=== PATIENT | male | born 1940 | race Caucasian/White ===

== ENCOUNTER 2017-07-10 20:59 | Inpatient (IN) | payer MEDICARE ==
[~2017-07-10] VITALS: Ht 175.3 cm; Wt 79.4 kg
[2017-07-10] MEDS ORDERED: ONDANSETRON HCL/PF 4 MG/2 ML VIAL ONE ×2 (21:21→21:28)
--- NOTE | 2017-07-10 21:25 | NUR ---
PT BIB RA C/O N/V/D SINCE THIS MORNING AND [place]ILL[place], REPORTS "WEIRD BLOOD SUGAR READINGS". PER EMS, BGL UPON ARRIVAL WAS 15, GIVEN 250 ML OF IV D10. RECHECK UPON ARRIVAL TO ER = 217. DENIES BLOOD IN VOMIT OR STOOL. RESP EVEN UNLABORED. SKIN WARM NONDIAPHORETIC. DENIES ABD PAIN. ABD SOFT NONTENDER. NOTED WITH ST ON MONITOR; MD AWARE. IN ER BED 06 ON MONITOR.
[2017-07-10] MEDS ORDERED: ONDANSETRON HCL/PF 4 MG/2 ML VIAL IVP ONE (21:30)
[2017-07-10] MEDS ORDERED: IV NS 0.9% 1,000 ML BAG IV ONE ×3 (21:30)
[2017-07-10 22:04] LABS: BASOPHILS % (AUTO) 0.2 % (0.0-2.0); EOSINOPHILS # (AUTO) 0.1 /CMM (0.0-0.7); EOSINOPHILS % (AUTO) 0.6 % (0.0-6.0); HEMATOCRIT 44 % (39-51); HEMOGLOBIN 14.6 g/dL (13.5-17.5); LYMPHOCYTES # (AUTO) 0.5 /CMM (0.8-4.8); LYMPHOCYTES % (AUTO) 5.7 % (20.0-44.0); MEAN CORPUSCULAR HEMOGLOBIN 30 PG (26.0-33.0); MEAN CORPUSCULAR HGB CONC 33 g/dl (31.0-36.0); MEAN CORPUSCULAR VOLUME 91 fL (80-96); MONOCYTES # (AUTO) 0.4 /CMM (0.1-1.30); MONOCYTES % (AUTO) 4.4 % (2.0-12.0); NEUTROPHILS # (AUTO) 8.2 /CMM (1.8-8.9); NEUTROPHILS % (AUTO) 89.1 % (43.0-81.0); PLATELET COUNT (AUTO) 157 /CMM (150-450); RDW COEFFICIENT OF VARIATION 14.5 (11.5-15.0); RED BLOOD CELL COUNT(AUTO) 4.83 MIL/uL (4.5-6.0); WHITE BLOOD COUNT (AUTO) 9.2 K/uL (4.3-11.0)
[2017-07-10 22:16] LABS: CALCIUM, SERUM 9.4 mg/dL (8.5-10.1); CARBON DIOXIDE 23 mmol/L (21-32); CHLORIDE 108 mmol/L (98-107); CREATININE 1.7 mg/dL (0.6-1.3); GLUCOSE 238 mg/dL (74-106); POTASSIUM 4.6 mmol/L (3.5-5.1); SODIUM SERUM 142 mmol/L (136-145); UREA NITROGEN, BLOOD 44 mg/dL (7-18)
[2017-07-10 22:20] LABS: INR 1.1 (0.87-1.13); PROTHROMBIN TIME 11.4 SECS (9.5-12.7)
[2017-07-10 22:22] LABS: ALANINE AMINOTRANSFERASE 44 U/L (12-78); ALBUMIN 3.9 g/dL (3.4-5.0); ALKALINE PHOSPHATASE 27 U/L (46-116); ASPARTATE AMINOTRANSFERASE 21 U/L (15-37); BILIRUBIN,DIRECT 0.2 mg/dL (0.0-0.2); BILIRUBIN,TOTAL 0.9 mg/dL (0.2-1.0); LIPASE 588 U/L (73-393); TOTAL PROTEIN, SERUM 6.8 g/dL (6.4-8.2)
[2017-07-10 22:24] LABS: TROPONIN I < 0.017 ng/mL (0.00-0.056)
--- NOTE | 2017-07-10 23:07 | NUR ---
RESTING QUIETLY, NAD NOTED. REMAINS IN ST. ALL NEEDS ATTENDED TO. 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
[2017-07-10] MEDS ORDERED: ATOR10TA PO (23:22)
[2017-07-10] MEDS ORDERED: BACL10TA PO (23:22)
[2017-07-10] MEDS ORDERED: OMEP20TA20 PO (23:22)
[2017-07-10] MEDS ORDERED: ALBU8.5H2 INH (23:22)
[2017-07-10] MEDS ORDERED: MONT10TA22 PO (23:22)
[2017-07-10] MEDS ORDERED: ZOLP10TA6 PO (23:22)
[2017-07-10] MEDS ORDERED: FERR-58 PO (23:22)
[2017-07-10] MEDS ORDERED: LOSA50TA21 PO (23:22)
[2017-07-10] MEDS ORDERED: TAMS-12 PO (23:22)
[2017-07-10] MEDS ORDERED: BUDE10.2 INH (23:22)
[2017-07-10] MEDS ORDERED: METF10002 PO (23:22)
[2017-07-10] MEDS ORDERED: ASPI81TA2 PO (23:22)
[2017-07-10] MEDS ORDERED: GLIP5TAB13 PO (23:22)
[2017-07-10] MEDS ORDERED: FENO145T PO (23:22)
[2017-07-10] MEDS ORDERED: IV NS 0.9% 1,000 ML IV PRN (23:42)
[2017-07-11] VITALS: BP 113/68
[2017-07-11] MEDS ORDERED: MAG HYDROX/AL HYDROX/SIMETH 30 ML UDC PO PRN
[2017-07-11] MEDS ORDERED: HYDROCODONE/APAP 5/325MG 1 EACH TABLET PO PRN
[2017-07-11] MEDS ORDERED: ONDANSETRON HCL/PF 4 MG/2 ML VIAL IVP PRN
[2017-07-11] MEDS ORDERED: MAGNESIUM HYDROXIDE 30 ML UDC PO PRN
[2017-07-11] MEDS ORDERED: ACETAMINOPHEN 325 MG TABLET PO PRN
[2017-07-11] MEDS ORDERED: Z GUARD REMEDY 2 OZ OINT TP PRN
--- NOTE | 2017-07-11 | NUR ---
PT TRANSPORTED TO [facility] IN STABLE CONDITION VIA ACLS PROTOCOL
--- NOTE | 2017-07-11 00:07 | NUR ---
TELE/RN NOTES RECEIVED PT. FROM ER VIA IVONE. PT. IS AWAKE, ALERT AND ORIENTED X3. BREATHING EVEN AND UNLABORED ON ROOM AIR. NO SOB, RESPIRATORY DISTRESS OR COMPLAINTS OF PAIN NOTED AT THIS TIME. NO COMPLAINTS OF N/V AT THIS TIME. ORIENTED PT. TO ROOM. PLACED EXTERNAL ROLL WRAPPER ON PT. CURRENT RHYTHM = SINUS TACHYCARDIA HR 110. PT. WITH RIGHT AC 18 GAUGE IV SALINE LOCK PRESENT, PATENT AND INTACT. PT. FAMILY MEMBERS PRESENT AT BEDSIDE. BED LOCKED AND IN LOWEST POSITION, SIDE RAILS UP X2, CALL LIGHT WITHIN REACH, WILL CONTINUE TO MONITOR.
[2017-07-11] MEDS ORDERED: IV NS 0.9% 1,000 ML IV PRN (00:48)
[2017-07-11] MEDS ORDERED: PANTOPRAZOLE 40 MG VIAL ONE (01:02)
--- NOTE | 2017-07-11 01:10 | NUR ---
TELE/RN NOTES NOTIFIED PACK TRAIN DRIVER BALL PT. MOST RECENT LACTIC ACID IS ELEVATED AT 2.5 PREVIOUS LACTIC ACID 2.1 PER PACK TRAIN DRIVER BALL NEW ORDERS: LACTIC ACID TO BE DRAWN WHEN IV BOLUS COMPLETE. PT. TO HAVE STAT CT ABDOMEN AND PELVIS. WILL CARRY OUT ORDERS. WILL CONTINUE TO MONITOR.
--- NOTE | 2017-07-11 01:20 | NUR ---
TELE/RN NOTES PT. LEFT THE FLOOR VIA WHEELCHAIR ACCOMPANIED BY RADIOLOGIST FOR CT ABDOMEN AND PELVIS WITHOUT CONTRAST.
[2017-07-11] MEDS ORDERED: LEVOFLOXACIN 500 MG /D5W 100ML 500 MG in PREMIX 1 EA IV SCH (01:30)
--- NOTE | 2017-07-11 01:32 | NUR ---
TELE/RN NOTES PT. ARRIVED BACK ON THE FLOOR FROM CT ABDOMEN AND PELVIS WITHOUT CONTRAST. PT. TOLERATED PROCEDURE WELL. PT. IS LYING IN BED NO COMPLAINTS OF SOB, RESPIRATORY DISTRESS, NO N/V. PT. APPEARS COMFORTABLE AT THIS TIME. WILL CONTINUE TO MONITOR.
[2017-07-11] MEDS ORDERED: LEVOFLOXACIN 500 MG /D5W 100ML 100 ML IV ONE (01:42)
[2017-07-11] MEDS ORDERED: METRONIDAZOLE 500MG/ NS 100ML 100 ML IV ONE (01:42)
[2017-07-11] MEDS: METRONIDAZOLE 500MG/ NS 100ML 500 MG in PREMIX 1 EA IV SCH ×3 (01:48→17:21)
[2017-07-11 02:12] LABS: APPEARANCE,URINE CLEAR (CLEAR); BILIRUBIN,URINE NEGATIVE (NEGATIVE); BLOOD, URINE NEGATIVE Ery/uL (NEGATIVE); COLOR,URINE YELLOW (YELLOW); KETONES,URINE NEGATIVE (NEGATIVE); LEUKOCYTE ESTERASE ,URINE NEGATIVE (NEGATIVE); NITRITE, URINE NEGATIVE (NEGATIVE); PROTEIN,URINE NEGATIVE (NEGATIVE); UGLUCOSE 1+ mg/dL (NEGATIVE); UROBILINOGEN,URINE 0.2 EU/dL (0.2)
[2017-07-11 02:15] LABS: BACTERIA,URINE None seen /HPF (None Seen); RBC,URINE NONE SEEN /HPF (0-2); SQUAMOUS EPITHELIAL CELL,UR Rare /HPF (None Seen); WBC,URINE 0-2 /HPF (0-3)
[2017-07-11 05:02] VITALS: BP 105/64
--- NOTE | 2017-07-11 05:45 | NUR ---
TELE/RN NOTES CLARIFIED WITH PAMELA BALL PT. ORDERS FOR ACCUCHECK. PER PAMELA BALL NEW ORDER: ACCUCHECKS ACHS NO INSULIN COVERAGE AT THIS TIME. WILL CARRY OUT ORDER. WILL CONTINUE TO MONITOR.
--- NOTE | 2017-07-11 06:29 | NUR ---
TELE/RN NOTES PT. IS LYING IN BED RESTING. BREATHING EVEN AND UNLABORED ON ROOM AIR. NO N/V, SOB, RESPIRATORY DISTRESS OR COMPLAINTS OF PAIN NOTED AT THIS TIME. PT. WITH EXTERNAL ORAL SURGERY ASSISTANT ON PT. CURRENT RHYTHM = SINUS RHYTHM HR 88. PT. WITH RIGHT AC 18 GAUGE PERIPHERAL IV PRESENT, PATENT AND INTACT ADMINISTERING TO PT. NS @ 125 ML/HR. ALL PT. NEEDS MET. BED LOCKED AND IN LOWEST POSITION, SIDE RAILS UP X2, CALL LIGHT WITHIN REACH, WILL ENDORSE TO DAYSHIFT NURSE FOR CONTINUITY OF CARE.
[2017-07-11 06:46] LABS: EOSINOPHILS # (AUTO) 0.1 /CMM (0.0-0.7); EOSINOPHILS % (AUTO) 1.8 % (0.0-6.0); HEMATOCRIT 33 % (39-51); HEMOGLOBIN 11.4 g/dL (13.5-17.5); LYMPHOCYTES # (AUTO) 0.4 /CMM (0.8-4.8); LYMPHOCYTES % (AUTO) 7.6 % (20.0-44.0); MEAN CORPUSCULAR HEMOGLOBIN 31 PG (26.0-33.0); MEAN CORPUSCULAR HGB CONC 34 g/dl (31.0-36.0); MEAN CORPUSCULAR VOLUME 90 fL (80-96); MONOCYTES # (AUTO) 0.5 /CMM (0.1-1.30); MONOCYTES % (AUTO) 9.5 % (2.0-12.0); NEUTROPHILS # (AUTO) 4.4 /CMM (1.8-8.9); NEUTROPHILS % (AUTO) 81.1 % (43.0-81.0); PLATELET COUNT (AUTO) 114 /CMM (150-450); RDW COEFFICIENT OF VARIATION 14.3 (11.5-15.0); WHITE BLOOD COUNT (AUTO) 5.4 K/uL (4.3-11.0)
[2017-07-11 07:09] VITALS: BP 112/76
[2017-07-11 07:10] LABS: CHOLESTEROL 73 mg/dL (<200); HDL CHOLESTEROL 34 mg/dL (40-60); LDL 32 mg/dL (0-99); THYROID STIMULATING HORMONE 0.682 uIU/mL (0.358-3.74); TRIGLYCERIDES 54 mg/dL (30-150)
[2017-07-11 07:11] LABS: CARBON DIOXIDE 23 mmol/L (21-32); CHLORIDE 113 mmol/L (98-107); CREATININE 1.5 mg/dL (0.6-1.3); GLUCOSE 141 mg/dL (74-106); MAGNESIUM 1.3 mg/dL (1.8-2.4); PHOSPHORUS 2.9 mg/dL (2.5-4.9); POTASSIUM 5.2 mmol/L (3.5-5.1); SODIUM SERUM 144 mmol/L (136-145); UREA NITROGEN, BLOOD 38 mg/dL (7-18)
[2017-07-11] MEDS ORDERED: BLOOD SUGAR DIAGNOSTIC 1 EACH STRIP IN SCH (07:30)
--- NOTE | 2017-07-11 07:30 | NUR ---
PT RECEIVED RESTING COMFORTABLY IN BED. NO S/S OR C/O PAIN OR DISTRESS NOTED. SIDE RAILS UP X2, CALL LIGHT LEFT WITHIN REACH. WILL CONTINUE PLAN OF CARE.
[2017-07-11 08:00] VITALS: BP 111/72
[2017-07-11] MEDS ORDERED: glipiZIDE 5 MG TABLET PO SCH (09:00)
[2017-07-11] MEDS ORDERED: ASPIRIN 81 MG TAB.CHEW PO SCH (09:00)
[2017-07-11] MEDS ORDERED: BACLOFEN (10 MG) 10 MG TABLET PO SCH ×2 (09:00→22:00)
[2017-07-11] MEDS ORDERED: DEXTROSE 50%-WATER 50 ML DISP.SYRIN IV PRN (09:30)
[2017-07-11] MEDS ORDERED: MECLIZINE HCL 12.5 MG TABLET PO PRN (09:30)
[2017-07-11] MEDS ORDERED: Magnesium 1GM/D5W 100ML PREMIX 100 ML IV SCH (09:30)
[2017-07-11] MEDS: MONTELUKAST SODIUM (10MG) 10 MG TABLET PO SCH (09:44)
[2017-07-11] MEDS: SLOW FE 1 TAB PO SCH (09:44)
[2017-07-11] MEDS: FENOFIBRATE NANOCRYS (145 MG) 145 MG TABLET PO SCH (09:44)
[2017-07-11] MEDS: TAMSULOSIN 0.4 MG CAP.SR.24H PO SCH (09:45)
[2017-07-11] MEDS ORDERED: SODIUM POLYSTYRENE SULFONATE 15 G/60 ML BOTTLE PO ONE (10:00)
[2017-07-11] MEDS: PANTOPRAZOLE 40 MG VIAL IV SCH ×2 (12:01→21:25)
[2017-07-11] MEDS: BLOOD SUGAR DIAGNOSTIC 1 EACH STRIP IN SCH ×3 (12:01→21:29)
[2017-07-11] MEDS: Budesonide/Formoterol Fumarate (Symbicort 160-4.5 Mcg In INH SCH ×2 (12:42→17:20)
[2017-07-11] MEDS ORDERED: ALBUTEROL FS 2.5 MG/3 ML VIAL.NEB NEB PRN (13:30)
[2017-07-11 16:00] VITALS: BP 118/70
[2017-07-11] MEDS ORDERED: PANTOPRAZOLE 40 MG VIAL IV SCH ×2 (17:00)
[2017-07-11] MEDS ORDERED: ATORVASTATIN 10 MG TABLET PO SCH (18:00)
--- NOTE | 2017-07-11 18:58 | NUR ---
CHANGE OF SHIFT REPORT PT RESTING COMFORTABLY IN BED. NO S/S OR C/O PAIN OR DISTRESS NOTED. SIDE RAILS UP X2, CALL LIGHT LEFT WITHIN REACH. PT KEPT CLEAN, DRY, AND COMFORTABLE. NO SIGNIFICANT CHANGES SINCE PREVIOUS SHIFT. WILL GIVE REPORT TO MARCO ROY.
[2017-07-11] MEDS: INSULIN REGULAR, HUMAN 100 UNIT/ML 3 ML VIAL SQ PRN ×2 (19:06→21:28)
--- NOTE | 2017-07-11 19:30 | NUR ---
DIRECTOR HEALTH NOTE RECEIVED PATIENT FROM DAY SHIFT, PATIENT IS ALERT AND ORIENTEDX3, DENIES RESPIRATORY DISTRESS OR PAIN AT THIS TIME. IV ON RIGHT FA IS PATENT AND INTACT, FLUID IS RUNNING. TELE MONITOR ST 102. SRX2, BED IN LOW POSITION, CALL LIGHT WITHIN REACH, WILL CONTINUE TO MONITOR PATIENT.
[2017-07-11 20:00] VITALS: BP 126/73
--- NOTE | 2017-07-11 21:40 | NUR ---
WEATHERIZATION AND HOUSING INSPECTOR NOTE PATIENT REQUESTED TO TAKE AMBIEN TONIGHT, HAS HOME MED AMBIEN 10MG, BUT NO ORDER IN [facility]. CALLED ONCALL DEVELOPMENTAL BEHAVIORAL PHYSICIAN LIANA, GOT ONE TIME ORDER OF AMBIEN 10MG PO TONIGHT. ORDERS PLACED AND WILL CARRY OUT.
[2017-07-11] MEDS ORDERED: ZOLPIDEM TARTRATE 10 MG TABLET PO ONE (22:00)
[2017-07-11] MEDS ORDERED: ZOLPIDEM TARTRATE 10 MG TABLET ONE (22:07)
[2017-07-12] VITALS: BP 118/76
[2017-07-12] MEDS: METRONIDAZOLE 500MG/ NS 100ML 500 MG in PREMIX 1 EA IV SCH ×2 (01:09→10:30)
[2017-07-12 04:00] VITALS: BP 154/97
[2017-07-12] MEDS ORDERED: LEVOFLOXACIN 250 MG /D5W 50 ML 250 MG in PREMIX 1 EA IV SCH (04:00)
[2017-07-12] MEDS: BLOOD SUGAR DIAGNOSTIC 1 EACH STRIP IN SCH ×2 (05:57→11:23)
--- NOTE | 2017-07-12 06:55 | NUR ---
DRAPERY INSPECTOR NOTE PATIENT IS RESTING IN BED COMFORTABLY, NO ACUTE EVENT NOTED THROUGHOUT THE SHIFT. IV ON RIGHT FA IS PATENT AND INTACT, FLUID IS RUNNING. TELE MONITOR SR 84 WITH PVCS. WILL ENDORSE TO DAY SHIFT NURSE FOR EDMUND.
[2017-07-12 07:09] LABS: BASOPHILS % (AUTO) 0.1 % (0.0-2.0); EOSINOPHILS # (AUTO) 0.1 /CMM (0.0-0.7); EOSINOPHILS % (AUTO) 1.5 % (0.0-6.0); HEMATOCRIT 33 % (39-51); HEMOGLOBIN 11.1 g/dL (13.5-17.5); LYMPHOCYTES # (AUTO) 0.7 /CMM (0.8-4.8); MEAN CORPUSCULAR HEMOGLOBIN 31 PG (26.0-33.0); MEAN CORPUSCULAR HGB CONC 34 g/dl (31.0-36.0); MEAN CORPUSCULAR VOLUME 90 fL (80-96); MONOCYTES # (AUTO) 0.3 /CMM (0.1-1.30); MONOCYTES % (AUTO) 8.1 % (2.0-12.0); NEUTROPHILS # (AUTO) 3.2 /CMM (1.8-8.9); NEUTROPHILS % (AUTO) 74.3 % (43.0-81.0); PLATELET COUNT (AUTO) 103 /CMM (150-450); RDW COEFFICIENT OF VARIATION 14.1 (11.5-15.0); RED BLOOD CELL COUNT(AUTO) 3.63 MIL/uL (4.5-6.0); WHITE BLOOD COUNT (AUTO) 4.3 K/uL (4.3-11.0)
[2017-07-12 07:25] LABS: CALCIUM, SERUM 7.9 mg/dL (8.5-10.1); CARBON DIOXIDE 25 mmol/L (21-32); CHLORIDE 111 mmol/L (98-107); CREATININE 1.4 mg/dL (0.6-1.3); GLUCOSE 117 mg/dL (74-106); POTASSIUM 4.8 mmol/L (3.5-5.1); SODIUM SERUM 143 mmol/L (136-145); UREA NITROGEN, BLOOD 27 mg/dL (7-18)
[2017-07-12] MEDS ORDERED: PANTOPRAZOLE 40 MG TABLET.DR PO SCH (07:30)
--- NOTE | 2017-07-12 07:50 | NUR ---
SEAL SKINNER OPENING NOTE PATIENT IS ALERT AND ORIENTED x4. NO PAIN AT THIS TIME. NO SOB OR DISTRESS NOTED. CALL LIGHT WITHIN REACH. SAFETY MEASURES IMPLEMENTED. ABLE TO COMMUNICATE NEEDS. TELE MONITOR IN PLACE, SR WITH PVCS AT 82. IV ON RIGHT FOREARM INTACT AND PATENT, IV FLUIDS RUNNING AT THIS TIME. NPO EXCEPT DUE TO EGD TODAY 07/12/17. CONSENTS OBTAINED. WILL CONTINUE TO MONITOR
--- NOTE | 2017-07-12 08:30 | NUR ---
RN NOTE PATIENT REFUSED TO CONTINUE TO HAVE TELE MONITOR ON. EXPLAINED RISKS AND BENEFITS. PATIENT STILL INSISTED ON NOT HAVING IT ON. CHARGE NURSE AND MD AWARE.
[2017-07-12 08:50] VITALS: BP 146/91
[2017-07-12] MEDS: SLOW FE 1 TAB PO SCH (08:55)
[2017-07-12] MEDS: Budesonide/Formoterol Fumarate (Symbicort 160-4.5 Mcg In INH SCH (08:55)
[2017-07-12] MEDS: MONTELUKAST SODIUM (10MG) 10 MG TABLET PO SCH (08:55)
[2017-07-12] MEDS: TAMSULOSIN 0.4 MG CAP.SR.24H PO SCH (08:55)
[2017-07-12] MEDS: PANTOPRAZOLE 40 MG VIAL IV SCH (08:55)
[2017-07-12] MEDS: FENOFIBRATE NANOCRYS (145 MG) 145 MG TABLET PO SCH (09:00)
[2017-07-12] MEDS ORDERED: PANTOPRAZOLE 40 MG VIAL IV SCH (09:00)
--- NOTE | 2017-07-12 16:07 | NUR ---
MS CONFIGURATION MANAGEMENT ADVISOR NOTE PATIENT IS ALERT AND ORIENTED x4. NO PAIN AT THIS TIME. NO SOB OR DISTRESS NOTED. CALL LIGHT WITHIN REACH AT ALL TIMES. SAFETY MEASURES IMPLEMENTED. S/P EGD DONE TODAY THIS MORNING. ALL DUE MEDICATIONS GIVEN ORDERED. ALL DISCHARGE INSTRUCTIONS GIVEN TO PATIENT, ABLE TO TEACH BACK INSTRUCTIONS. PRESCRIPTION GIVEN TO PATIENT, EXPLAINED RISKS AND BENEFITS OF MEDICATIONS, PATIENT VERBALIZED UNDERSTANDING FOR MEDICATIONS. ALL BELONGINGS WITH PATIENT. LEFT VIA PRIVATE CAR WITH SON. IV REMOVED, SKIN INTACT.
== END 2017-07-12 16:00 | disposition home or self-care (01) | DRG 377 ==
LOC: ER 21:03 → TELE 22:59 → MED 07-12 10:45
PROVIDERS: ADMIT Nurse Practitioner Acute Care; ATTEND Nurse Practitioner Acute Care
PROC: 0DB68ZX Excision of Stomach, Via Natural or Artificial Opening Endoscopic, Diagnostic (ICD-10-PCS; principal; 2017-07-12 09:40)
DX: K29.71 Gastritis, unspecified, with bleeding (principal); N17.0 Acute kidney failure with tubular necrosis; E87.2 Acidosis; A09 Infectious gastroenteritis and colitis, unspecified; K57.92 Diverticulitis of intestine, part unspecified, without perforation or abscess without bleeding; E11.22 Type 2 diabetes mellitus with diabetic chronic kidney disease; J44.9 Chronic obstructive pulmonary disease, unspecified; E86.0 Dehydration; I12.9 Hypertensive chronic kidney disease with stage 1 through stage 4 chronic kidney disease, or unspecified chronic kidney disease; N18.9 Chronic kidney disease, unspecified; K21.9 Gastro-esophageal reflux disease without esophagitis; E78.5 Hyperlipidemia, unspecified; D64.9 Anemia, unspecified; E83.42 Hypomagnesemia; E87.5 Hyperkalemia; G47.00 Insomnia, unspecified; N40.0 Benign prostatic hyperplasia without lower urinary tract symptoms; J45.909 Unspecified asthma, uncomplicated; K27.9 Peptic ulcer, site unspecified, unspecified as acute or chronic, without hemorrhage or perforation
CPT/HCPCS: 36415; 76770-TC; 80048-TC; 80061-TC; 80076-TC; 81000-TC; 82272-TC; 82962-TC; 83605-TC; 83690-TC; 83735-TC; 84100-TC; 84443-TC; 84484-TC; 85025-TC; 85730-TC; 87040-TC; 87081-TC; 87086-TC; 88305-TC; A4216; A4606; C9113; J1815; J1956; J2405; J2704; J3475; J3490; J7030; Z7610

== ENCOUNTER 2018-07-21 20:54 | Emergency (ER) | payer MEDICARE, OTHER ==
[~2018-07-21] VITALS: Ht 175.3 cm; Wt 79.4 kg
[~2018-07-21 20:54] MED LIST: ALBU8.5H8 INH; ASPI-1169 PO; ATOR10TA PO; BACL10TA PO; BUDE10.2 INH; FENO145T PO; FERR325T23 PO; GLIP5TAB13 PO; LOSA50TA21 PO; METF-442 PO; MONT10TA22 PO; OMEP20TA20 PO; TAMS-12 PO; ZOLP10TA6 PO
[2018-07-21 21:15] VITALS: BP 157/94
--- NOTE | 2018-07-21 22:34 | NUR ---
PT LEFT WITHOUT BEING SEEN BY MD, RISK AND BENEFITS EXPLAINED X3. PT STRONGLY REFSUED AT THIS TIME. PT STATES " I CALLED MY PCP, HE WILL PRESCRIBED ME THE RIGHT MEDICATION" DR. DUNN MADE AWARE
== END 2018-07-21 22:38 | disposition left against medical advice (07) ==
LOC: ER 20:56
DX: Z53.21 Procedure and treatment not carried out due to patient leaving prior to being seen by health care provider (principal); H57.9 Unspecified disorder of eye and adnexa
CPT/HCPCS: A4606; Z7610

== ENCOUNTER 2018-11-02 07:01 | Inpatient (IN) | payer MEDICARE, OTHER ==
[~2018-11-02] VITALS: Ht 175.3 cm; Wt 79.4 kg
[~2018-11-02 07:01] MED LIST changes: -LOSA50TA21 PO; +LOSA50TA39 PO
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
--- NOTE | 2018-11-02 07:09 | NUR ---
TECH AT BEDSIDE FOR EKG
--- NOTE | 2018-11-02 07:29 | NUR ---
PHLEB AT BEDSIDE FOR LABS
--- NOTE | 2018-11-02 07:31 | NUR ---
REPORT GIVEN TO MANUELA ZAMARRIPA FOR EDMUND
[2018-11-02 07:38] LABS: BASOPHILS % (AUTO) 0.4 % (0.0-2.0); EOSINOPHILS % (AUTO) 1.7 % (0.0-6.0); HEMATOCRIT 34 % (39-51); HEMOGLOBIN 11.8 g/dL (13.5-17.5); LYMPHOCYTES # (AUTO) 0.8 /CMM (0.8-4.8); LYMPHOCYTES % (AUTO) 14.5 % (20.0-44.0); MEAN CORPUSCULAR HGB CONC 35 g/dl (31.0-36.0); MEAN CORPUSCULAR VOLUME 91 fL (80-96); MONOCYTES # (AUTO) 0.3 /CMM (0.1-1.30); MONOCYTES % (AUTO) 5.5 % (2.0-12.0); NEUTROPHILS # (AUTO) 4.2 /CMM (1.8-8.9); NEUTROPHILS % (AUTO) 77.9 % (43.0-81.0); PLATELET COUNT (AUTO) 146 /CMM (150-450); RED BLOOD CELL COUNT(AUTO) 3.74 MIL/uL (4.5-6.0); WHITE BLOOD COUNT (AUTO) 5.3 K/uL (4.3-11.0)
[2018-11-02 07:47] LABS: CALCIUM, SERUM 9.1 mg/dL (8.5-10.1); CARBON DIOXIDE 21 mmol/L (21-32); CHLORIDE 105 mmol/L (98-107); CREATININE 1.5 mg/dL (0.6-1.3); GLUCOSE 148 mg/dL (74-106); POTASSIUM 4.1 mmol/L (3.5-5.1); SODIUM SERUM 138 mmol/L (136-145); UREA NITROGEN, BLOOD 35 mg/dL (7-18)
--- NOTE | 2018-11-02 07:55 | NUR ---
patient transported for CT via gurney, patient remains in stable condition at this time.
--- NOTE | 2018-11-02 08:07 | NUR ---
Patient is back from CT.
[2018-11-02] MEDS ORDERED: ACETAMINOPHEN ES 500 MG TABLET ONE (08:11)
[2018-11-02] MEDS ORDERED: ACETAMINOPHEN ES 500 MG TABLET PO ONE (08:30)
[2018-11-02] MEDS ORDERED: ACETAMINOPHEN SUSP 80 MG/0.8 ML BOTTLE PO ONE (08:30)
[2018-11-02] MEDS ORDERED: ONDANSETRON HCL/PF 4 MG/2 ML VIAL IVP ONE (09:00)
[2018-11-02] MEDS ORDERED: MORPHINE SULFATE INJ 2 MG/ML DISP.SYRIN IV ONE (09:00)
[2018-11-02] MEDS ORDERED: EXEN2PEN SQ (09:09)
[2018-11-02] MEDS ORDERED: ONDANSETRON HCL/PF 4 MG/2 ML VIAL ONE (09:13)
[2018-11-02] MEDS ORDERED: MORPHINE SULFATE INJ 4 MG/ML DISP.SYRIN ONE (09:13)
--- NOTE | 2018-11-02 10:11 | NUR ---
REPORT GIVEN TO MANUELA GUZMAN FOR [facility] TELE [phone].
[2018-11-02 10:45] VITALS: BP 188/114
[2018-11-02] MEDS ORDERED: ZOLPIDEM TARTRATE 5 MG TABLET PO PRN (11:30)
[2018-11-02] MEDS ORDERED: MAG HYDROX/AL HYDROX/SIMETH 30 ML UDC PO PRN (11:30)
[2018-11-02] MEDS ORDERED: Z GUARD REMEDY 2 OZ OINT TP PRN (11:30)
[2018-11-02] MEDS ORDERED: ONDANSETRON HCL/PF 4 MG/2 ML VIAL IVP PRN (11:30)
[2018-11-02] MEDS ORDERED: MAGNESIUM HYDROXIDE 30 ML UDC PO PRN (11:30)
[2018-11-02] MEDS ORDERED: HYDROCODONE/APAP 5/325MG 1 EACH TABLET PO PRN (11:30)
[2018-11-02] MEDS ORDERED: ACETAMINOPHEN 325 MG TABLET PO PRN (11:30)
--- NOTE | 2018-11-02 11:41 | NUR ---
SIGNAL INSPECTOR ADMITTING NOTES PATIENT ADMITTED TO UNIT VIA GURNEY ACCOMPANIED BY Merle NURSE. PT ABLE TO AMBULATE FROM GURNEY TO BED. PT IS A/O X4. ABLE TO MAKE NEEDS AND CONCERNS KNOWN WITH COMPLAINED OF MILD PAIN ON CHEST BUT TOLERABLE. ORIENTED TO ROOM AND UNIT. PT INITIALLY PLACED ON TELEMONITORING WITH SR WITH OCCASIONAL PVC'S AND HR ON THE 90'S, NO C/O CARDIAC DISCOMFORTS. DR DHALIWAL ON UNIT, WENT TO ASSESS AND EVALUATE PT AND ORDER TO PUT PT ON MED-SURG. V/S TAKEN AND RECORDED. HEAD TO TOE ASSESSMENT DONE, PT WITH SMALL BUMP ON HIS LEFT BACK OF HIS HEAD AND REDNESS ON HIS LEFT EYE, DR DHALIWAL AWARE. MULTIPLE BRUISES AND SKIN TEARS NOTED, PHOTOS TAKEN AND FILED ON CHART. NOTED WITH IV ACCESS ON LAC G#20 INTACT AND PATENT. PT WITH CLEAR LUNG SOUNDS BILATERALLY ON AUSCULTATION. ABDOMEN SOFT, NON-TENDER, NON-DISTENDED WITH POSITIVE BOWEL SOUNDS ON FOUR QUADRANTS. SAFETY MEASURES INITIATED, BED PLACED ON LOWEST LOCKED POSITION WITH SR UP X2. CALL LIGHT IN REACH. WILL CONTINUE TO MONITOR AND ASSESS PT.
[2018-11-02] MEDS ORDERED: DEXTROSE 50%-WATER 50 ML DISP.SYRIN IV PRN (12:30)
[2018-11-02] MEDS: HYDROMORPHONE INJ 0.5 MG/0.5 ML SYRINGE IV PRN ×3 (13:03→22:17)
--- NOTE | 2018-11-02 13:06 | NUR ---
RN NOTES/ PAIN MANAGEMENT PATIENT COMPLAINED OF ACHING AND SHARP PAIN ON HIS MID CHEST AREA WITH SCALE OF 10/10, PRN DILAUDID 0.25MG IVP ADMINISTERED AT 1302. WILL CONTINUE TO MONITOR AND ASSESS PT.
[2018-11-02 16:00] VITALS: BP 151/97
[2018-11-02] MEDS ORDERED: Medication Not On Formulary EA (Exenatide Microspheres (Bydureon Pen) 2 MG) SQ SCH (17:30)
[2018-11-02] MEDS: BLOOD SUGAR DIAGNOSTIC 1 EACH STRIP IN SCH ×2 (17:31→21:04)
[2018-11-02] MEDS: INSULIN REGULAR, HUMAN 100 UNIT/ML 3 ML VIAL SQ PRN ×2 (17:32→21:10)
[2018-11-02] MEDS ORDERED: BACLOFEN (10 MG) 10 MG TABLET PO SCH (18:00)
--- NOTE | 2018-11-02 18:16 | NUR ---
RN NOTES/ PAIN MANAGEMENT PATIENT COMPLAINED OF GENERALIZED PAIN WITH SCALE OF 10/10, PRN DILAUDID 0.25MG IVP ADMINISTERED AT 1806. WILL CONTINUE TO MONITOR AND ASSESS PT
--- NOTE | 2018-11-02 19:00 | NUR ---
RN NOTES RECEIVE PT IN BED A/O X 4, IN STABLE CONDITION, NOT IN DISTRESS, SAFETY MEASURES IN PLACE. WILL CONTINUE TO MONITOR.
[2018-11-02] MEDS ORDERED: ALBUTEROL FS 2.5 MG/3 ML VIAL.NEB NEB PRN (19:30)
--- NOTE | 2018-11-02 19:39 | NUR ---
MS RN CLOSING NOTES PT RESTING IN BED AND WATCHING TV. A/O X4, SAME ABLE TO VERBALIZED NEEDS. ON ROOM AIR, BREATHING EVEN WITH NO SOB NOTED. SALINE LOCK ON LEFT AC INTACT AND PATENT. ALL NEEDS AND CARE ATTENDED WELL. BED IN LOWEST LOCKED POSITION WITH SR UP X2. CALL LIGHT IN REACH. ENDORSED TO MAINTENANCE APPRENTICE NURSE FOR EDMUND.
[2018-11-02 20:00] VITALS: BP 168/90
--- NOTE | 2018-11-02 20:18 | NUR ---
[place] HOSPITALIST SPOKE TO DR. HUERTA AND RELAYED BLOOD PRESSURE OF THE PT 168/90 PER DEANNA ORDERED HYDRALAZINE 25 MG PO Q4 PRN SBP>160 READ BACK AND VERIFIED ORDERS NOTED AND CARRIED OUT
[2018-11-02] MEDS: hydrALAZINE HCL 25 MG TABLET PO PRN (20:24)
[2018-11-02 20:30] VITALS: BP 133/82
[2018-11-02 20:32] VITALS: BP 170/98
[2018-11-02] MEDS ORDERED: ZOLPIDEM TARTRATE 10 MG TABLET PO SCH (22:00)
[2018-11-03] MEDS: HYDROMORPHONE INJ 0.5 MG/0.5 ML SYRINGE IV PRN ×2 (05:49→12:17)
[2018-11-03] MEDS: BLOOD SUGAR DIAGNOSTIC 1 EACH STRIP IN SCH ×2 (05:58→12:19)
[2018-11-03] MEDS: INSULIN REGULAR, HUMAN 100 UNIT/ML 3 ML VIAL SQ PRN ×2 (05:59→12:20)
--- NOTE | 2018-11-03 06:22 | NUR ---
RN CLOSING NOTE AWAKE WATCHING TV. RESPIRATIONS EVEN AND UNLABORED. AM CARE RENDERED. NO COMPLAIN OF PAIN IN STABLE CONDITION, NOT IN DISTRESS. NURSING CARE RENDERED, KEPT CLEAN AND DRY AND COMFORT, NEEDS ATTENDED AND ANCTIPATED. GOOD SKIN CARE. SAFETY MEASURES IN PLACE, CALL LIGHT WITHIN REACH. WILL ENDORSE TO ELEVATOR OPERATOR FOR EDMUND.
[2018-11-03 06:34] LABS: BASOPHILS % (AUTO) 0.3 % (0.0-2.0); EOSINOPHILS % (AUTO) 1.6 % (0.0-6.0); HEMATOCRIT 37 % (39-51); HEMOGLOBIN 12.7 g/dL (13.5-17.5); LYMPHOCYTES # (AUTO) 0.9 /CMM (0.8-4.8); LYMPHOCYTES % (AUTO) 11.2 % (20.0-44.0); MEAN CORPUSCULAR HGB CONC 35 g/dl (31.0-36.0); MEAN CORPUSCULAR VOLUME 91 fL (80-96); MONOCYTES # (AUTO) 0.5 /CMM (0.1-1.30); MONOCYTES % (AUTO) 6.4 % (2.0-12.0); NEUTROPHILS # (AUTO) 6.3 /CMM (1.8-8.9); NEUTROPHILS % (AUTO) 80.5 % (43.0-81.0); PLATELET COUNT (AUTO) 171 /CMM (150-450); RED BLOOD CELL COUNT(AUTO) 4.05 MIL/uL (4.5-6.0); WHITE BLOOD COUNT (AUTO) 7.9 K/uL (4.3-11.0)
[2018-11-03 06:41] LABS: CHOLESTEROL 98 mg/dL (<200); HDL CHOLESTEROL 29 mg/dL (40-60); LDL 50 mg/dL (0-99); TRIGLYCERIDES 155 mg/dL (30-150)
[2018-11-03 06:50] LABS: CALCIUM, SERUM 9.1 mg/dL (8.5-10.1); CARBON DIOXIDE 27 mmol/L (21-32); CHLORIDE 102 mmol/L (98-107); CREATININE 1.5 mg/dL (0.6-1.3); GLUCOSE 116 mg/dL (74-106); MAGNESIUM 1.6 mg/dL (1.8-2.4); PHOSPHORUS 3.2 mg/dL (2.5-4.9); POTASSIUM 4.5 mmol/L (3.5-5.1); SODIUM SERUM 138 mmol/L (136-145); UREA NITROGEN, BLOOD 25 mg/dL (7-18)
[2018-11-03] MEDS ORDERED: PANTOPRAZOLE 40 MG TABLET.DR PO SCH (07:30)
--- NOTE | 2018-11-03 07:30 | NUR ---
RN OPENING NOTE PT WAS RECEIVED IN BED AT LOWEST AND LOCKED POSITION WITH SIDE RAILS UP X2, A/O X4, BREATHING EVEN AND UNLABORED ON RA, NO S/S OF PAIN OR DISTRESS NOTED, IV IS PATENT AND INTACT, SAFETY PRECAUTIONS IN PLACE, CALL LIGHT WITHIN REACH, WILL MONITOR ACCORDINGLY.
[2018-11-03 08:00] VITALS: BP 172/108
[2018-11-03] MEDS: hydrALAZINE HCL 25 MG TABLET PO PRN (08:08)
[2018-11-03] MEDS ORDERED: MONTELUKAST SODIUM (10MG) 10 MG TABLET PO SCH (09:00)
[2018-11-03] MEDS ORDERED: FENOFIBRATE NANOCRYS (145 MG) 145 MG TABLET PO SCH (09:00)
[2018-11-03] MEDS ORDERED: TAMSULOSIN 0.4 MG CAP.SR.24H PO SCH (09:00)
[2018-11-03] MEDS ORDERED: ASPIRIN 81 MG TAB.CHEW PO SCH (09:00)
[2018-11-03] MEDS ORDERED: glipiZIDE 5 MG TABLET PO SCH (09:00)
[2018-11-03] MEDS ORDERED: FERROUS SULFATE (325 MG) 325 MG/TAB TABLET PO SCH (09:00)
[2018-11-03] MEDS ORDERED: ATORVASTATIN 10 MG TABLET PO SCH (09:00)
[2018-11-03] MEDS ORDERED: LOSARTAN POTASSIUM 50 MG TABLET PO SCH (09:00)
[2018-11-03] MEDS ORDERED: METFORMIN 500 MG TABLET PO SCH (09:00)
[2018-11-03] MEDS ORDERED: Medication Not On Formulary EA (Budesonide/Formoterol Fumarate (Symbicort 160-4.5 Mcg In INH SCH (09:00)
[2018-11-03] MEDS ORDERED: FLUTICASONE/VILANTEROL 1 EACH BLST.W.DEV IH SCH (09:51)
[2018-11-03] MEDS ORDERED: LOSARTAN POTASSIUM 50 MG TABLET PO ONE (10:00)
[2018-11-03] MEDS ORDERED: LOSA50TA3 PO (10:04)
[2018-11-03] MEDS ORDERED: HYDR-3972 PO (10:04)
[2018-11-03] MEDS: Magnesium 1GM/D5W 100ML PREMIX 100 ML IV SCH ×2 (10:08→11:20)
[2018-11-03 10:41] VITALS: BP 127/87
--- NOTE | 2018-11-03 12:20 | NUR ---
RN NOTE DILAUDID WAS GIVEN AT THIS TIME
--- NOTE | 2018-11-03 12:20 | NUR ---
RN NOTE PT BLOOD GLUCOSE WAS NOTED TO BE 154, HE REFUSED INSULIN AT THIS TIME. EDUCATION REGARDING INSULIN WAS PROVIDED AT THIS TIME
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
[2018-11-04] MEDS ORDERED: LOSARTAN POTASSIUM 50 MG TABLET PO SCH (09:00)
== END 2018-11-03 13:43 | disposition home or self-care (01) | DRG 565 ==
LOC: ER 07:03 → TELE 09:44 → MED 15:00
PROVIDERS: ADMIT Family Medicine; ATTEND Family Medicine
DX: S22.20XA Unspecified fracture of sternum, initial encounter for closed fracture (principal); S22.43XA Multiple fractures of ribs, bilateral, initial encounter for closed fracture; V49.9XXA Car occupant (driver) (passenger) injured in unspecified traffic accident, initial encounter; Y93.9 Activity, unspecified; E11.22 Type 2 diabetes mellitus with diabetic chronic kidney disease; E78.5 Hyperlipidemia, unspecified; I12.9 Hypertensive chronic kidney disease with stage 1 through stage 4 chronic kidney disease, or unspecified chronic kidney disease; J44.9 Chronic obstructive pulmonary disease, unspecified; K21.9 Gastro-esophageal reflux disease without esophagitis; S20.219A Contusion of unspecified front wall of thorax, initial encounter; R16.1 Splenomegaly, not elsewhere classified; R91.8 Other nonspecific abnormal finding of lung field; S61.412A Laceration without foreign body of left hand, initial encounter; E11.65 Type 2 diabetes mellitus with hyperglycemia; Z79.84 Long term (current) use of oral hypoglycemic drugs; N40.0 Benign prostatic hyperplasia without lower urinary tract symptoms; Z79.82 Long term (current) use of aspirin; S80.212A Abrasion, left knee, initial encounter; S80.211A Abrasion, right knee, initial encounter; S00.03XA Contusion of scalp, initial encounter; Y92.410 Unspecified street and highway as the place of occurrence of the external cause; K76.89 Other specified diseases of liver; N18.2 Chronic kidney disease, stage 2 (mild)
CPT/HCPCS: 36415; 70450-TC; 71250-TC; 80048-TC; 80061-TC; 82962-TC; 83735-TC; 84100-TC; 84484-TC; 85025-TC; 85730-TC; 87081-TC; 93307-TC; A6402; A6403; G0378; J1815; J2270; J2405; J3475

== ENCOUNTER 2018-11-06 13:20 | Outpatient (CLI) | payer MEDICARE, OTHER ==
[~2018-11-06 13:20] MED LIST changes: +EXEN2PEN SQ; +HYDR-3972 PO; +LOSA50TA3 PO
== END 2018-11-06 23:59 | disposition home or self-care (01) ==
LOC: WOU 13:20
PROVIDERS: ATTEND Surgery
DX: S51.812D Laceration without foreign body of left forearm, subsequent encounter (principal); W19.XXXD Unspecified fall, subsequent encounter; S81.011D Laceration without foreign body, right knee, subsequent encounter; S81.012D Laceration without foreign body, left knee, subsequent encounter; S50.11XD Contusion of right forearm, subsequent encounter; S50.12XD Contusion of left forearm, subsequent encounter; E11.9 Type 2 diabetes mellitus without complications; Z79.84 Long term (current) use of oral hypoglycemic drugs; Z79.82 Long term (current) use of aspirin; Z79.891 Long term (current) use of opiate analgesic; I25.10 Atherosclerotic heart disease of native coronary artery without angina pectoris
CPT/HCPCS: A6402; G0463